=== PATIENT | male | born 1975 | race African-American/Black ===

== ENCOUNTER 2019-10-29 18:25 | Inpatient (IN) | payer MEDICAID ==
[~2019-10-29] VITALS: Ht 175.3 cm; Wt 84.4 kg
[2019-10-29] MEDS ORDERED: OCTREOTIDE ACETATE 50 MCG/ML 1ML IV STA (22:46)
[2019-10-29] MEDS ORDERED: PANTOPRAZOLE SODIUM 40 MG/VIAL IV STA (22:46)
[2019-10-29] MEDS ORDERED: SODIUM CHLORIDE 0.9% 1,000 ML IV ONE (22:46)
[2019-10-29 23:51] LABS: BASOPHILS % 0.4 % (0.0-2.0); HEMATOCRIT. 47.3 % (42.0-52.0); LYMPHOCYTES % 43.3 % (20.0-50.0); MEAN CORPUSCULAR HEMOGLOBIN 32.7 pg (28.0-32.0); MEAN CORPUSCULAR VOLUME 96.9 fL (80.0-94.0); MEAN PLATELET VOLUME 10.1 fl (7.4-10.4); MONOCYTES % 7.9 % (2.0-8.0); NEUTROPHILS % 45.4 % (40.0-76.0); PLATELET 191 x1000/uL (130-400); RED BLOOD CELL COUNT 4.89 mill/uL (4.7-6.1); RED CELL DISTRIBUTION WIDTH 12.8 % (11.6-14.6)
[2019-10-29 23:55] LABS: CHLORIDE 109 mEq/L (98-107)
[2019-10-29 23:57] LABS: PROTHROMBIN TIME 10.4 sec (9.6-11.0)
[2019-10-30] MEDS ORDERED: SODIUM CHLORIDE 0.45% 1,000 ML IV SCH (08:00)
[2019-10-30 08:20] VITALS: BP_SYST 145; BP_SYST 148; BP_DIAS 85
[2019-10-30] MEDS ORDERED: PANTOPRAZOLE 80 MG in SODIUM CHLORIDE 0.9% 100 ML IV SCH ×4 (09:00)
[2019-10-30 10:00] VITALS: BP 134/80
[2019-10-30 11:13] LABS: BASOPHILS % 0.5 % (0.0-2.0); EOSINOPHILS % 2.9 % (0.0-5.0); HEMATOCRIT. 47.5 % (42.0-52.0); HEMOGLOBIN. 16.1 g/dL (14.0-18.0); LYMPHOCYTES % 28.8 % (20.0-50.0); MEAN CORPUSCULAR HEMOGLOBIN 32.6 pg (28.0-32.0); MEAN CORPUSCULAR VOLUME 96.1 fL (80.0-94.0); MEAN PLATELET VOLUME 10.2 fl (7.4-10.4); MONOCYTES % 8.5 % (2.0-8.0); NEUTROPHILS % 59.3 % (40.0-76.0); PLATELET 171 x1000/uL (130-400); RED BLOOD CELL COUNT 4.94 mill/uL (4.7-6.1); RED CELL DISTRIBUTION WIDTH 12.8 % (11.6-14.6)
[2019-10-30 12:00] VITALS: BP 110/52
[2019-10-30 12:08] LABS: CHLORIDE 106 mEq/L (98-107)
[2019-10-30] MEDS: PANTOPRAZOLE 80 MG in SODIUM CHLORIDE 0.9% 100 ML IV SCH (14:46)
[2019-10-30 15:39] VITALS: BP 154/91
[2019-10-30] MEDS ORDERED: ONDANSETRON HCL 4MG/2ML INJ IV PRN (16:15)
[2019-10-30] MEDS ORDERED: INFLUENZA VIRUS VACCINE(AFLURIA) 0.5ML SYR IM ONE (17:45)
[2019-10-30 19:56] VITALS: BP 145/82
[2019-10-30] MEDS: PANTOPRAZOLE 40MG DR TABLET PO SCH (21:29)
[2019-10-31] VITALS: BP 148/72
[2019-10-31] MEDS: PANTOPRAZOLE 80 MG in SODIUM CHLORIDE 0.9% 100 ML IV SCH (00:32)
[2019-10-31 04:00] VITALS: BP 117/72
[2019-10-31] MEDS: PANTOPRAZOLE 40MG DR TABLET PO SCH (06:00)
[2019-10-31 06:42] LABS: HEMATOCRIT 45.8 % (42.0-52.0); HEMOGLOBIN 15.8 g/dL (14.0-18.0)
[2019-10-31 08:00] VITALS: BP 124/69
[2019-10-31 12:00] VITALS: BP 118/53
[2019-10-31 16:00] VITALS: BP 137/77
[2019-10-31] MEDS ORDERED: FAMOTIDINE 20MG TABLET PO SCH (21:00)
== END 2019-10-31 18:56 | disposition home or self-care (01) | DRG 241 ==
LOC: ER 18:25 → 5WST 10-30 02:35 → EDBEDREQ 10-30 02:37 → EDBEDREQDT 10-30 02:37 → EDBEDREQTM 10-30 02:37 → ENRESERV 10-30 07:55
PROVIDERS: ADMIT Family Medicine; ATTEND Family Medicine
DX: K25.4 Chronic or unspecified gastric ulcer with hemorrhage (principal); D75.89 Other specified diseases of blood and blood-forming organs; K29.21 Alcoholic gastritis with bleeding; F10.10 Alcohol abuse, uncomplicated; Y90.9 Presence of alcohol in blood, level not specified
CPT/HCPCS: 36415; 80053; 85014; 85018; 85025; 86850; 86900; 96365; 96375; 99285; C9113; J2354; J7030; J7050